=== PATIENT | female | born 1955 | race Caucasian/White ===

== ENCOUNTER → 2016-06-21 | Day surgery (SDC) | payer MEDICARE, OTHER ==
[~2016-06-21] MED LIST: ADDERALL PO; ALBUTEROL17 GM INH; ALPRAZOLAM XR2 MG PO; COMBIVENT INH14.7 GM; COMBIVENT INH14.7 GM INH; CRESTOR PO; DARVOCET-N 1001 TA1 PO; DULOXETINE HCL40 MG PO; FLEXERIL PO; FLEXERIL10 MG PO; KEFLEX500 MG PO; KETOPROFEN PO; LACTULOSE10 G/15 M1 PO; LITHIUM PO; LO-DOSE ASPIRIN81 M1 PO; LORTAB 10/500 T1 TAB; LORTAB 5/500 TA1 TA1 PO; MOBIC PO; NAPROXEN PO; OMEGA-31000 M1 PO; ORUDIS75 M1 DOB; ORUDIS75 M1 PO; OXYCONTIN20 MG PO; PERCOCET 10/31 UDTA1 PO; PERCOCET10 PO; PHENERGAN PO; PHENERGAN PR; PHENERGAN25 MG PO; PREDNISONE PO; SEROQUEL PO; SIMVASTATIN10 MG PO; SKELAXIN PO; SOMA; SYMBICORT INH; TRAZODONE HCL150 MG PO; TRAZODONE PO; TYLOX 5/500 CAP1 CAP PO; ULTRAM PO; UNITHROID25 MCG PO; VICODIN 5/1 TAB 5/50 PO; VICODIN 5/500 T1 TAB PO; XANAX2 MG PO; ZANAFLEX4 M1 PO; ZITHROMAX PO; ZOFRANODT PO; ZYPREXA10 MG PO
--- NOTE | ~2016-06-21 | OR ---
Unit #: [id number] #: [id number] Patient: CHELA BARLOW [id number] [address] [place], [place] [address] [id number] O MR#: [id number] NAME: CHELA BARLOW. ROOM: Date of Procedure: 06/21/2016 Admission Date: 06/21/2016 Surgeon: Renan Moe M.D. : 1955 Attending Physician: Renan Moe M.D. Primary Care Physician: Phillip St M.D. OPERATIVE REPORT PREOPERATIVE DIAGNOSIS Colorectal cancer screening in an average-risk patient. PROCEDURE PERFORMED Colonoscopy up to cecum with good prep and visualization. POSTOPERATIVE DIAGNOSES Mild sigmoid and descending colon diverticulosis. Otherwise, normal examination up to cecum. The patient did not have any polyps nor any angiodysplasia or mass lesions. RECOMMENDATIONS Repeat colonoscopy in 10 years. SEDATION USED MAC. DESCRIPTION OF PROCEDURE Following detailed explanation of the potential risks and complications of a colonoscopy, namely perforation, bleeding, and complications related to sedation, the patient was brought to GI lab and laid in the left lateral decubitus position. A digital rectal examination was performed, which was normal. Lubricated tip of the Olympus video colonoscope was inserted through the anus and advanced under direct vision. The scope was advanced and passed up to sigmoid into descending colon. Scant small diverticula were seen in this area. The scope tip was then navigated all the way up to cecum with visualization of the ileocecal valve and the appendiceal orifice. Preparation was good with good visualization and photodocumentation was obtained. Last several inches of the terminal ileum also visualized after intubation of the ileocecal valve and appeared normal. Successive segments of the colonic mucosa were examined upon withdrawal and appeared unremarkable. There being no polyps, mass lesions, or AVMs. Other than the left-sided diverticulosis, no other abnormalities noted. The patient did not have any hemorrhoids at anal verge. She tolerated the procedure without any postprocedure complications. Dictated by... Joseline Alonso/michael Unit #: [id number] #: [id number] Patient: CHELA BARLOW TD: 06/22/2016 02:25 JOB #: [id number] OPERATIVE REPORT X Renan Moe MD PROCEDURE OPERATIVE NOTE
== END | disposition home or self-care (01) ==
LOC: COPS 08:20
DX: Z12.11 Encounter for screening for malignant neoplasm of colon (principal); K57.30 Diverticulosis of large intestine without perforation or abscess without bleeding; J45.909 Unspecified asthma, uncomplicated; F17.210 Nicotine dependence, cigarettes, uncomplicated; Z86.010 Personal history of colon polyps; Z90.89 Acquired absence of other organs; Z88.6 Allergy status to analgesic agent; Z88.8 Allergy status to other drugs, medicaments and biological substances; Z88.0 Allergy status to penicillin; Z79.82 Long term (current) use of aspirin; Z79.891 Long term (current) use of opiate analgesic; Z79.899 Other long term (current) drug therapy
CPT/HCPCS: J2250

== ENCOUNTER → 2016-10-27 | Outpatient (CLI) | payer MEDICARE, OTHER ==
--- NOTE | ~2016-10-27 | MR113 ---
[facility] A Service of [facility] RADIOLOGY TEXT RESULTS PATIENT: CHELA BARLOW LOCATION: [facility] : 54 UNIT #: [id number] AGE: [address]: Carlo Abdul MD SEX: F ORDER DR: [id number] [facility] [address] [place], [place] [address] [id number] O MR#: [id number] Acc #: [id number] NAME: CHELA BARLOW. : 1955 SEX: F STUDY DATE/TIME: 10/27/2016 7:43 UNIT: [facility] ROOM: STUDY DESCRIPTION: MR Lumbar Wo Contrast Attending Physician: Carlo Abdul M.D. Referring Physician: Carlo Abdul M.D. Ordering Physician: Carlo Abdul M.D. Primary Care Physician: Phillip St M.D. MRI CENTER REPORT This report is preliminary unless electronic signature is present. EXAM Lumbar spine MRI without HISTORY New onset of radiculitis. Cervical thoracic lumbar degenerative disc disease. Patient had a history of a fracture to the back 10 years ago, treated with traction. She indicates she fell 1 month ago and has known degenerative disc disease for followup. She has had previous treatment with nerves burned over several years. FINDINGS MRI of the lumbar spine was performed without contrast using routine 1.5T imaging technique. Comparison study is from 02/03/2010. Sagittal alignment is normal. There is no acute appearing compression fracture. There is minor levoconvex lumbar scoliosis. There is no significant chronic compression fracture in the lumbar spine. There are minor marrow endplate degenerative changes best appreciated at L3-4, type 2. Minor anterior plate spondylosis noted multiple levels. The discs are desiccated T12-L1, L1-2, L2-3. The conus medullaris terminates at L2-3. This is at the lower limits of normal. It is normal in size and signal intensity. At L1-2, there is mild facet degenerative change on the left but no canal stenosis or foraminal impingement. There is a mild concentric disc bulge. At L2-3, there is mild facet degenerative change on the left. There is mild concentric disc bulge. No canal stenosis or foraminal impingement. At L3-4, there is mild facet degenerative change on the right. There is a minor concentric disc bulge. There is no canal stenosis. There is only STS. [facility] A Service of [facility] RADIOLOGY TEXT RESULTS PATIENT: CHELA BARLOW LOCATION: [facility] : 54 UNIT #: [id number] AGE: [address]: Carlo Abdul MD SEX: F ORDER DR: mild inferior foraminal narrowing. At L4-5, there is approximately moderate bilateral facet degenerative change with a mild broad-based posterior disc bulge. There is no canal stenosis. There is mild right inferior foraminal narrowing. At L5-S1, there is mild foraminal narrowing on the right. There is no canal stenosis. IMPRESSION 1. No evidence for lumbar compression fracture. 2. Multilevel lumbar degenerative changes but no evidence for lumbar canal stenosis. Please refer to the [id number] description. Please see the separate reports for the cervical and thoracic spine. Dictated by... Gayathri Kendall M.D. THIS IS AN ELECTRONICALLY VERIFIED REPORT Gayathri Kendall M.D. at 10/31/2016 8:37 AM MURRAY/leticia TD: 10/28/2016 05:43 JOB #: [id number] MRI CENTER REPORT Page 1 of 1 COPY
--- NOTE | ~2016-10-27 | MR176 ---
[facility] A Service of [facility] RADIOLOGY TEXT RESULTS PATIENT: CHELA BARLOW [facility] UNIT #: [id number] AGE: [address]: Carlo Abdul MD SEX: F ORDER DR: [id number] [facility] [address] [place], [place] [address] [id number] O MR#: [id number] Acc #: [id number] NAME: CHELA BARLOW. : 1955 SEX: F STUDY DATE/TIME: 10/27/2016 7:29 UNIT: [facility] ROOM: STUDY DESCRIPTION: MR Thoracic Wo Contrast Attending Physician: Carlo Abdul M.D. Referring Physician: Carlo Abdul M.D. Ordering Physician: Carlo Abdul M.D. Primary Care Physician: Phillip St M.D. MRI CENTER REPORT This report is preliminary unless electronic signature is present. EXAM MRI of the thoracic spine without contrast HISTORY Degenerative disc disease. Patient has complaint of new onset radiculitis cervical and thoracic degenerative disc disease, history of remote blunt trauma to the back fractured 10 years ago but no surgery. Fell one month ago. Patient claustrophobic. COMMENT MRI of the thoracic spine was performed prior to and following intravenous administration of 1.5T imaging technique. Comparison is from 02/03/2010. There is mild exaggeration of thoracic kyphosis. There is no compression fracture in the thoracic spine. There is some motion limitation of the study despite patient being medicated. Bone marrow signal intensity essentially within normal limits. Multiple level mild intervertebral disc desiccation noted. There is some deformity of the thoracic cord at the level of T6. The cord is apparently anteriorly displaced and flattened. Cord signal intensity is not optimally assessed. Subtle cord signal abnormality at the level of T6 not entirely excluded. Differential consideration for the finding at T6 would include a arachnoid cyst resulting in mass effect upon the cord and displacing it anteriorly versus a dural tear with a anterior cord herniation through it. I do not see an obvious herniation but this would be hard to demonstrate given the amount of motion on the study. The patient is best assessed with a thoracic myelogram to see if a arachnoid cyst could be demonstrated. It is conceivable, depending upon the actual trauma the patient experienced that findings are related to the prior spine fracture. I do not have any further information about the trauma. There are small disc protrusions at [facility] A Service of [facility] RADIOLOGY TEXT RESULTS PATIENT: CHELA BARLOW LOCATION: [facility] : 54 UNIT #: [id number] AGE: [address]: Carlo Abdul MD SEX: F ORDER DR: T2-3, T3-4, T4-5, T5-6 and T6-7. The result in mild cord and anterior thecal sac flattening but no associated canal stenosis. The only significant cord deformity is at the level of T6 described above. A large extrusion is seen. The largest of the small disc protrusions is at T6-7. It is slightly right paramedian in location and about 5 mm in dimension. Because of the flattening of the cord and anterior displacement at the level of T6, the small disc protrusions at T6-7 and T5-6 do contribute to the mass effect on the cord. Appearance is probably not changed at T6-7 on comparison to prior and probably is slightly progressed at T5-6 on comparison to prior. IMPRESSION 1. There is some anterior displacement of and flattening of the cord at the level of T6 extending about the length of the T6 vertebral body. Equivocal cord signal abnormality at this level. Main differential considerations are presence of an arachnoid cyst resulting in mass effect upon the cord or possibly the presence of a dural tear with a small anterior cord herniation. Diagnosis is best pursued further with a thoracic myelogram. On review of study from 02/03/2010, appearance is similar. It is conceivable that the findings are related to the patient's remote spine trauma history. Please correlate with the site of prior injury if that can be determined on review of medical records. There is no evidence for a thoracic compression fracture. Otherwise there is no significant thoracic canal stenosis. Degenerative disc disease is noted but the degenerative disc disease itself does not result in significant canal stenosis. Dictated by... Gayathri Kendall M.D. THIS IS AN ELECTRONICALLY VERIFIED REPORT Gayathri Kendall M.D. at 10/28/2016 7:48 AM MURRAY/leticia TD: 10/28/2016 05:10 JOB #: [id number] MRI CENTER REPORT Page 1 of 1 COPY
--- NOTE | ~2016-10-27 | MR32 ---
[facility] A Service of [facility] & [facility] RADIOLOGY TEXT RESULTS PATIENT: CHELA BARLOW [facility] UNIT #: [id number] AGE: [address]: Carlo Abdul MD SEX: F ORDER DR: [id number] [facility] [address] [place], [place] [address] [id number] O MR#: [id number] Acc #: [id number] NAME: CHELA BARLOW. : 1955 SEX: F STUDY DATE/TIME: 10/27/2016 7:12 UNIT: [facility] ROOM: STUDY DESCRIPTION: MR Cervical Wo Contrast Attending Physician: Carlo Abdul M.D. Referring Physician: Carlo Abdul M.D. Ordering Physician: Carlo Abdul M.D. Primary Care Physician: Phillip St M.D. MRI CENTER REPORT This report is preliminary unless electronic signature is present. EXAM Cervical spine MRI without HISTORY Degenerative disc disease. 61-year-old female complains of new onset radiculitis in cervical spine. History of blunt trauma to the back 10 years ago. Fracture at that time. Patient fell 1 month ago. The patient has had previous ablations of nerves and has had an injection 10/18/2016. No history of cancer. Patient claustrophobic. TECHNIQUE MRI of the cervical spine performed without contrast using routine 1.5T imaging technique. Study is limited by motion despite repeating a portion of the study and despite the patient having taking medication. COMPARISON MRI is from 02/05/2006. FINDINGS There is normal sagittal alignment. There is endplate spondylosis at C6-7 with disc desiccation loss of intervertebral disc height. Intervertebral discs are desiccated in general. There is no Chiari-I malformation. Cervical cord is normal in size. Allowing for motion, there is no reproducible focus of cord signal abnormality. Small amount of fluid or inflammatory change in the left-sided mastoid tip. At C2-3, there is no significant abnormality. At C3-4, there is mild posterior disc bulging. There is mild facet degenerative change on the left. There is mild left-side foraminal narrowing. No canal stenosis. [facility] A Service of [facility] & [facility] RADIOLOGY TEXT RESULTS PATIENT: CHELA BARLOW LOCATION: [facility] : 54 UNIT #: [id number] AGE: [address]: Carlo Abdul MD SEX: F ORDER DR: At C4-5, mild right moderate left-side facet degenerative change. There is a mild concentric disc bulge. Probably some uncovertebral osteophyte formation left greater than right. Mild effacement of the thecal sac but no significant central canal stenosis. Mild right and moderate left-sided foraminal narrowing. At C5-6, there is mild right and moderate left-side facet degenerative change. There is a concentric disc bulge and probably some uncovertebral osteophyte formation. There is mild effacement of the anterior cord and thecal sac and very mild canal stenosis. There is probably significant left side foraminal impingement possibly moderate to severe allowing for the motion. At C6-7, there is concentric disc osteophyte complex moderate in amount with uncovertebral osteophyte formation. There is mild bilateral facet degenerative change. There is mild cord flattening and canal stenosis and fairly severe left greater than right-sided foraminal narrowing. At C7-T1, there is no canal or foraminal impingement. On comparison to the study from 2005 probably mild overall progression of cervical degenerative disease. If intervention is contemplated in this patient given the amount of motion consider correlation with a cervical myelogram and a post myelographic cervical CT scan to better estimate the degree of foraminal impingement. IMPRESSION Multilevel cervical degenerative change details provided above most significant appearing radiographically C5-6 and C6-7 where there is mild cord flattening and canal stenosis. There is multilevel foraminal impingement. Unfortunately the study is significantly motion limited. If intervention is contemplated, consider correlation with cervical myelogram and a post myelographic cervical CT scan to better delineate degree of foraminal impingement. Please refer to the discussion above. Dictated by... Gayathri Kendall M.D. THIS IS AN ELECTRONICALLY VERIFIED REPORT Gayathri Kendall M.D. at 10/27/2016 6:42 PM [place] TD: 10/27/2016 18:25 JOB #: [id number] MRI CENTER REPORT Page 1 of 1 COPY
== END | disposition home or self-care (01) ==
LOC: CMRI 06:36
DX: M50.30 Other cervical disc degeneration, unspecified cervical region (principal); M50.81 Other cervical disc disorders, high cervical region; M50.820 Other cervical disc disorders, mid-cervical region, unspecified level; M25.78 Osteophyte, vertebrae; M51.26 Other intervertebral disc displacement, lumbar region; M99.83 Other biomechanical lesions of lumbar region; M51.36 Other intervertebral disc degeneration, lumbar region
CPT/HCPCS: 72141; 72146; 72148

== ENCOUNTER 2016-11-04 08:52 | Emergency (ER) | payer MEDICARE, OTHER ==
[~2016-11-04] VITALS: Ht 157.5 cm; Wt 73.5 kg
== END 2016-11-04 10:55 | disposition home or self-care (01) ==
LOC: CED 08:52
DX: S61.012A Laceration without foreign body of left thumb without damage to nail, initial encounter (principal); J45.909 Unspecified asthma, uncomplicated; J44.9 Chronic obstructive pulmonary disease, unspecified; F31.9 Bipolar disorder, unspecified; Z23 Encounter for immunization; Z86.73 Personal history of transient ischemic attack (TIA), and cerebral infarction without residual deficits; Z87.891 Personal history of nicotine dependence; W27.0XXA Contact with workbench tool, initial encounter; Y92.009 Unspecified place in unspecified non-institutional (private) residence as the place of occurrence of the external cause
CPT/HCPCS: 12001; 29130; 90471; 90715; 99283